=== PATIENT | female | born 1975 | race American Indian/Alaskan Native ===

== ENCOUNTER 2020-04-10 19:24 | Emergency (ER) | payer OTHER | END 2020-04-10 20:35 | disposition home or self-care (01) | LOC: JVIRT 19:24 | DX: Z03.818 Encounter for observation for suspected exposure to other biological agents ruled out (principal); J06.9 Acute upper respiratory infection, unspecified | CPT/HCPCS: C9803; G2012-GT; U0003 ==

== ENCOUNTER 2021-05-14 10:14 | Emergency (ER) | payer OTHER ==
[2021-05-14] MEDS ORDERED: IBUPROFEN 400 MG TABLET (FP) PO ONE (10:23)
[2021-05-14 10:41] VITALS: BP 109/72; PULSE 57; TEMP 99.1; BMI 24.0
== END 2021-05-14 11:15 | disposition home or self-care (01) ==
LOC: FER 10:14
DX: M62.838 Other muscle spasm (principal)
CPT/HCPCS: 99283-25